=== PATIENT | female | born 1985 | race Caucasian/White ===

== ENCOUNTER → 2016-07-01 | Outpatient (CLI) | payer BC ==
[~2016-07-01] MED LIST: ETON1VAG; HDR2T PO; HDR4T PO; MAGN400O7 PO; METF500T4 PO; POLY17PO2 PO; PROGESTERONE
[2016-07-01 18:49] LABS: HEPATITIS B SURFACE ANTIGEN C Negative
== END ==
LOC: LAB 08:35
PROVIDERS: ATTEND Obstetrics & Gynecology
DX: Z11.3 Encounter for screening for infections with a predominantly sexual mode of transmission (principal)
CPT/HCPCS: 86592; 86803; 87340